=== PATIENT | female | born 1995 | race Caucasian/White ===

== ENCOUNTER 2018-10-25 07:43 | Day surgery (SDC) | payer OTHER ==
[~2018-10-25] VITALS: Ht 160 cm; Wt 83.3 kg
[2018-10-25] VITALS (19 sets, daily range): BP systolic 126–143; BP diastolic 76–92; PULSE 70–91; RESP 9–20; Ht 160 cm; Wt 83.3 kg
[2018-10-25] MEDS ORDERED: CEFAZOLIN 2 GM/50 ML (PMX) 50 ML IVPB ONE (08:30)
[2018-10-25] MEDS ORDERED: SOD CHLORIDE 0.9% 1,000 ML IV ONE (08:30)
[2018-10-25] MEDS ORDERED: BUPIVACAINE 0.25% (MPF) 30 ML INJ ONE (09:16)
--- NOTE | 2018-10-25 09:19 | PREAC ---
Date/Time of Note Date/Time of Note DATE: 10/25/18 TIME: 09:18 Anesthesia Eval and Record Evaluation Time Pre-Procedure Interview DATE: 10/25/18 TIME: 09:18 Age 23 Sex female NPO: 8 hrs Preoperative diagnosis cholelithiasis Planned procedure laparoscopic cholecystectomy Past Medical History Past Medical History: None Surgery & Anesthesia Issues No known issue Meds Anticoagulation: No Beta Merrick within 24 hr: No Reason Beta Merrick not given: Pt. not on B-Merrick No Active Prescriptions or Reported Meds Current Medications Sodium Chloride 1,000 ml @ 75 mls/hr [id number] ONCE IV ; Start 10/25/18 at 08:30; Stop 10/25/18 at 21:49 Meds reviewed: Yes Allergies Coded Allergies: No Known Allergy (Unverified , 10/25/18) Allergies Reviewed: Yes Labs/Studies Labs Reviewed: Reviewed by anesthesiologist test: Negative Pre-procedure Exam Last vitals Vital Signs Date Temp Pulse Resp B/P (MAP) Pulse Ox O2 O2 Flow FiO2 Time Delivery Rate 10/25/18 98.2 80 16 127/83 99 Room Air 09:10 (98) Airway: Adequate mouth opening, Adequate thyromental dist Mallampati: Mallampati II Teeth: Normal Lung: Normal Heart: Normal ASA Physical Status ASA physical status: 2 Emergency: None Planned Anesthetic General/MAC: ETT Planned Pain Management Parenteral pain med Pre-operative Attestations Prior to commencing anesthesia and surgery, the patient was re-evaluated, there was verification of: *The patient's identity *The results of appropriate recent lab work and preoperative vital signs *The above evaluation not changing prior to induction *Anesthetic plan, risk benefits, alternative and complications discussed with patient/family; questions answered; patient/family understands, accepts and wishes to proceed. FATMATA BROWN Oct 25, 2018 09:19
[2018-10-25] MEDS ORDERED: LIDOCAINE 2% (SDV) 5 ML INJ ONE (09:50)
[2018-10-25] MEDS ORDERED: ROCURONIUM 50 MG INJ ONE (09:50)
[2018-10-25] MEDS ORDERED: PROPOFOL 20 ML ONE (09:50)
[2018-10-25] MEDS ORDERED: CEFAZOLIN 1 GM INJ ONE (09:50)
[2018-10-25] MEDS ORDERED: ONDANSETRON 4 MG INJ ONE (09:51)
[2018-10-25] MEDS ORDERED: DEXAMETHASONE 4 MG/ML 5 ML INJ ONE (09:51)
[2018-10-25] MEDS ORDERED: SUGAMMADEX SODIUM 200 MG/2 ML VIAL IV ONE (10:18)
--- NOTE | 2018-10-25 10:25 | OPR ---
Date/Time of Note Date/Time of Note DATE: 10/25/18 TIME: 10:22 Operative Report Procedure Date: Oct 25, 2018 Preoperative Diagnosis symptomatic gallstones Postoperative Diagnosis same Operation/Procedure Performed laparoscopic cholecystectomy Surgeon see signature line Guidance Secretary none Anesthesia Type: general Estimated Blood Loss: 0 - 10 ml's Transfusion none Specimen gallbladder Grafts/Implants none Complications none Pt Condition Post Procedure: stable Indications This is a 23-year-old female with some tender gallstones. She required surgical excision of her gallbladder. Risks alternatives benefits and personal were discussed the patient. Patient expressed understanding and consents to the operation. Procedure Description Patient is taken to the OR and prepped and draped in usual sterile fashion. Surgical timeout was performed. IV antibiotics given. Infraumbilical incision was made transversely with a 15 blade. Dissection with cautery skin onto the fascia. The fascia was grasped with [place]'s and divided with curved Martinez scissors. 0 Vicryl use this was placed into the fascia. Lopez trocar is introduced. Pneumoperitoneum was established. Midepigastric 12 mm optical trochars placed under direct visualization. Right upper quadrant right upper flank 5 mm optical trochars were placed under direct visualization. Upon initial inspection there is adhesions to the gallbladder which were taken down bluntly. The gallbladder is grasped with the fundus and traction lateral cephalad direction. [place] graspers were used to dissect out the cystic duct and cystic artery. The critical view was established. The cystic duct is divided with 3 clips proximal clip distal and the division is performed laparoscopic scissors. Cystic artery was divided 3 clips proximal clip distal on the divisions performed lap scopic scissors. The gallbladder was taken of the gallbladder bed. Good hemostasis established. The gallbladder is retrieved Endo Catch bag. All ports were removed under direct visualization. 0 Vicryl stitch was tied down. Skin is closed using skin ivan. Therapeutic subcutaneous local anesthesia was injected at the incision site. Dry dressings were applied. Bear MARINO Oct 25, 2018 10:25
[2018-10-25] MEDS ORDERED: HYDROCODONE/APAP (5/325) TAB PO ONE (10:30)
--- NOTE | 2018-10-25 10:40 | PAC ---
Date/Time of Note Date/Time of Note DATE: 10/25/18 TIME: 10:40 Post-Anesthesia Notes Post-Anesthesia Note Last documented vital signs Vital Signs Date Temp Pulse Resp B/P (MAP) Pulse Ox O2 O2 Flow FiO2 Time Delivery Rate 10/25/18 98.2 80 16 127/83 99 Room Air 1040 (98) Activity: WNL Respiratory function: WNL Cardiovascular function: WNL Mental status: Baseline Pain reasonably controlled: Yes Hydration appropriate: Yes Nausea/Vomiting absent: Yes FATMATA BROWN Oct 25, 2018 10:40
[2018-10-25] MEDS ORDERED: FENTAnyl 50 MCG/ML VIAL IV PRN ×3 (11:00)
[2018-10-25] MEDS ORDERED: ONDANSETRON 4 MG INJ IV PRN (11:00)
[2018-10-25] MEDS ORDERED: DIPHENHYDRAMINE 50 MG INJ IV PRN (11:00)
[2018-10-25] MEDS ORDERED: METOCLOPRAMIDE 10 MG INJ IV PRN (11:00)
[2018-10-25] MEDS ORDERED: LABETALOL HCL 20MG INJ IV PRN (11:00)
[2018-10-25] MEDS ORDERED: MIDAZOLAM 1 MG/ML 2 ML INJ IV PRN (11:00)
[2018-10-25] MEDS ORDERED: ALBUTEROL 0.083% (NEB) 2.5 MG/3 ML AMP HHN PRN (11:00)
[2018-10-25] MEDS ORDERED: OXYCODONE/ACETAMINOPHEN (5/325) TAB PO PRN ×2 (11:00)
[2018-10-25] MEDS ORDERED: EPHEDrine 25 MG/5 ML SYG IV PRN (11:00)
[2018-10-25] MEDS ORDERED: KETOROLAC 30 MG INJ IV PRN (11:00)
[2018-10-25] MEDS ORDERED: MEPERIDINE 25 MG INJ IV PRN (11:00)
[2018-10-25] MEDS ORDERED: HYDROmorphONE 1 MG/5 ML IV SYRINGE IV PRN ×3 (11:00)
[2018-10-25] MEDS ORDERED: hydrALAzine 20 MG INJ IV PRN (11:00)
== END 2018-10-25 12:53 | disposition home or self-care (01) ==
LOC: SDS 07:43
PROVIDERS: ATTEND Surgery
DX: K80.10 Calculus of gallbladder with chronic cholecystitis without obstruction (principal)
CPT/HCPCS: 47562; 84703; 88304; J0690; J1100; J2175; J2405; J3010; Z7512; Z7610